=== PATIENT | male | born 1955 | race Caucasian/White ===

== ENCOUNTER → 2020-09-20 11:40 | Outpatient (CLI) | payer OTHER, SELFPAY ==
[2020-09-20 12:04] LABS: Add Manual Diff / Slide Review NO; Basophils Absolute Auto 0 /uL (0-100); Basophils Percent Auto 0.2 % (0-2); Eosinophils Absolute Auto 100 /uL (0-450); Eosinophils Percent Auto 2.1 % (2-4); Hematocrit 44.2 % (41-53); Hemoglobin 14.4 g/dL (13.5-17.5); Lymphocytes Absolute Auto 2400 /uL (1100-4500); Lymphocytes Percent Auto 36.9 % (25-40); Mean Corpuscular HGB Conc 32.7 % (30-36); Mean Corpuscular Volume 88.7 fL (80-100); Monocytes Absolute Auto 400 /uL (0-900); Monocytes Percent Auto 6.8 % (3-14); Neutrophils Absolute Auto 3600 /uL (1500-7000); Platelet Count 248 X10^3/uL (150-400); Red Blood Cell Count 4.98 X10^6/uL (4.5-5.9); Red Cell Distribution Width 15.5 % (11.6-14.8); White Blood Cell Count 6.6 X10^3/uL (4.5-11.0)
[2020-09-20 12:23] LABS: Carbon Dioxide 29 mmol/L (22-32); Chloride 106 mmol/L (98-107); HEMOLYSIS < 15 (0-50); Potassium 4.3 mmol/L (3.4-5.1); Sodium 139 mmol/L (137-145)
== END ==
PROVIDERS: Family Provider Family Medicine; PCP Family Medicine; Referring Provider Orthopaedic Surgery; Visit Provider Orthopaedic Surgery
DX: Z01.812 Encounter for preprocedural laboratory examination (principal); Z01.818 Encounter for other preprocedural examination
CPT/HCPCS: 36415; 80051; 85025

== ENCOUNTER → 2022-02-04 09:22 | Outpatient (CLI) | payer OTHER, SELFPAY ==
[2022-02-04 09:59] LABS: COVID19 -Nasal RAPID Negative (Negative)
== END ==
PROVIDERS: Family Provider Family Medicine; PCP Family Medicine; Visit Provider Surgery
DX: Z20.822 Contact with and (suspected) exposure to COVID-19 (principal); Z01.812 Encounter for preprocedural laboratory examination
CPT/HCPCS: 87635; C9803

== ENCOUNTER 2022-02-05 09:45 | Day surgery (SDC) | payer OTHER, SELFPAY ==
--- NOTE | 2022-02-05 | PATH_ITS ---
[facility] Accession Number: [id number] . 01 Material submitted: . colon - ASCENDING COLON POLYPS . 01 Clinical history: . SDC DYSPHAGIA, UNSPECIFIED PERSONAL HISTORY OF COLONIC POLYPS . 01 Diagnosis: Ascending Colon, Polyps, Biopsies: Tubular adenomas. MRV 02/07/2022 2204 Local . 01 Electronically signed: . Iliana Martin MD, Pathologist NPI- [id number] . 01 Gross description: . ASCENDING COLON POLYPS: Received in formalin are 2 fragment(s) of bruce, soft tissue measuring 0.4 x 0.3 x 0.3 cm to 0.3 x 0.3 x 0.3 cm submitted entirely in 1 cassette(s) /CPE 02/06/2022 0827 Local . 01 Pathologist provided ICD-10: D12.2 . 01 CPT . 265140 Specimen Comment: A courtesy copy of this report has been sent to [phone] Performed at: 01 [facility] [address] [place] [address], [place], [place] [id number] MD Michel Tse MD Phone: [phone]
[2022-02-05 10:07] VITALS: RESP 22; TEMP 36.5; BMI 27.1
[2022-02-05] MEDS: LACTATED RINGERS 1,000 ML 200 ML IV (10:31)
--- NOTE | 2022-02-05 10:35 | P.HP_ITS ---
History of Present Illness History of Present Illness Date Patient Seen: 02/05/22 Time Patient Seen: 10:36 [place] [facility] [place]: 66M with esophageal dysphagia here for EGD and screening colonoscopy. Dysphagia improved from previous visit. Personal history of colonic polyps. No hematemeis, N/V unintentional weight loss, blood per rectum. See H&P from November 2021 for further details. Patient History Surgical History H/O elbow surgery History of knee replacement Family & Social History Social History: household members significant other lives independently Yes Tobacco & Substance use: Smoking Status Never smoker alcohol intake current alcohol intake frequency a few times a month Meds Home Medications and Allergies Home Medications Medication Instructions Recorded Confirmed Type No Known Home Medications 02/05/22 02/05/22 History Allergies Allergy/AdvReac Type Severity Reaction Status Date / Time latex [LATEX] Allergy Mild rash Unverified 12/27/21 14:44 Exam Vital Signs (past 8 hours): - 02/05/22 10:07 Temperature 97.7 F Respiratory Rate 22 Oxygen Delivery Method Room Air Narrative Exam Narrative: Gen-Adult man alert and oriented Chest-Non labored resp Assessment & Plan Assessment & Plan narrative: 66M with esophageal dysphagia needs EGD and screening colonoscopy. Technical details were discussed. Risks, benefits, alternatives explained. Risks including but not limited to myocardial infarction, aspiration, bleeding, pain, missed lesion, incomplete examination, need for further radiographic studies, intestinal perforation, and need for major abdominal surgery were discussed. All questions were answered to their satisfaction, and they are in agreement with this plan. Time Spent With Patient Critical Care time: I spent a total of [] minutes of critical care time on this patient's care today; this time is exclusive of procedural time.
[2022-02-05] MEDS: fentaNYL 250 MCG/5 ML INJ 150 MCG IV (11:16)
[2022-02-05] MEDS: LIDOCAINE 4% SOLN 50 ML 20 ML TOP (11:17)
[2022-02-05] MEDS: MIDAZOLAM 5 MG/5 ML VIAL 6 MG IV (11:17)
--- NOTE | 2022-02-05 11:18 | PM.OP.EC ---
Operative Date/Time/Diagnoses Date of procedure: 02/05/22 Time of procedure: 11:19 Pre-op diagnosis: Esophageal dysphagia, screening colonoscopy Post-op diagnosis: same Procedure & Clinicians Study performed: Esophagoduodenoscopy and colonoscopy Same procedure as scheduled: Yes Indications: Esophageal dysphagia, screening colonoscopy Surgeon: Mikhail Keene Procedure Notes Procedure in detail: Medications: Conscious sedation using 6mg IV midazolam and 150mcg IV of fentanyl The history and physical was performed/updated and the patient is ASA class is 2 . The procedure was discussed in detail with the patient. Potential risks complications including infection, bleeding, missed diagnosis, perforation, need for surgery, and were explained. Their questions were answered and informed consent was obtained. Patient placed in left lateral decubitus position. Time out was performed. Procedural sedation was administered with Versed and Fentanyl. A bite block was placed. the scope was inserted into the mouth and advanced through the esophagus and into the stomach. The pylorus was intubated and the duodenum was normal to the 2nd portion. The scope was retroflexed within the stomach and there was no hiatal hernia. No ulcers, or gastritis. The scope was withdrawn into the esophagus the Z line was seen at 35 cm from the incisions. There was no Huntley's esophagitis or masses or strictures. Stomach was desufflated and scope removed. Patient tolerated procedure well. Examination began with a thorough inspection of the perianal area there was no evidence of fissures, fistulae, external hemorrhoids or cutaneous malignancy. The colonoscopy scope was then placed into the anal canal and was advanced to the cecum, which was identified by the ileocecal valve, the appendiceal orifice and the confluence of the taenia. The scope was then slowly withdrawn examining colon thoroughly in all directions, irrigating it of any residual stool. FINDINGS 1. Normal appearing esophagus. 2. Ascending colon two 5 mm polyps removed with biopsy forceps The patient tolerated the procedure well. They will be discharged once criteria are met. The prep was of good/excellent quality. The withdrawl time was 7 minutes. The sedation time was 30 minutes. Specimen(s): other (Ascending colonic polyps) Complications: none Impression: Colonic polyps. Normal esophagus Post-procedure Recommendations: Colonscopy in 5 years Disposition: same day surgery
[2022-02-05 11:23] VITALS: BP 134/82; PULSE 48; RESP 16; TEMP 36.1; O2SAT 94
[2022-02-05 11:27] VITALS: BP 134/96; PULSE 50; RESP 15; O2SAT 93
[2022-02-05 11:31] VITALS: BP 132/90; PULSE 48; RESP 11; O2SAT 94
[2022-02-05 11:34] VITALS: BP 126/84; PULSE 50; RESP 16; O2SAT 95
== END 2022-02-05 12:00 | disposition home or self-care (01) ==
PROVIDERS: Family Provider Family Medicine; PCP Family Medicine; Referring Provider Surgery; Visit Provider Surgery
PROC: 0DJ08ZZ Inspection of Upper Intestinal Tract, Via Natural or Artificial Opening Endoscopic (ICD-10-PCS; CPT 43235; principal; 2022-02-05 10:45)
PROC: 0DJD8ZZ Inspection of Lower Intestinal Tract, Via Natural or Artificial Opening Endoscopic (ICD-10-PCS; CPT 45378; 2022-02-05 10:45)
DX: Z12.11 Encounter for screening for malignant neoplasm of colon (principal); R13.14 Dysphagia, pharyngoesophageal phase; Z86.010 Personal history of colon polyps; D12.2 Benign neoplasm of ascending colon
CPT/HCPCS: 45380; 43235; 99152; 99153; J2250; J3010

== ENCOUNTER 2023-06-06 12:47 | Emergency (ER) | payer OTHER, SELFPAY ==
[2023-06-06 12:50] VITALS: BP 158/84; PULSE 60; RESP 16; TEMP 36.7; O2SAT 96; BMI 25.7
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
== END 2023-06-06 15:00 | disposition left against medical advice (07) ==
PROVIDERS: Emergency Provider Emergency Medicine; Family Provider Family Medicine; PCP Family Medicine
DX: S16.1XXA Strain of muscle, fascia and tendon at neck level, initial encounter (principal); V89.2XXA Person injured in unspecified motor-vehicle accident, traffic, initial encounter
CPT/HCPCS: 72125; 72128; 72131; 99283; 99284